=== PATIENT | female | born 1995 | race Caucasian/White ===

== ENCOUNTER 2016-10-19 12:41 | Inpatient (IN) | payer BC ==
[~2016-10-19] VITALS: Ht 157.5 cm; Wt 70.6 kg
[2016-10-19] MEDS ORDERED: TOPIRAMATE50 MG PO (14:07)
[2016-10-19] MEDS ORDERED: SUMATRIPTAN SU100 MG PO (14:08)
[2016-10-19] MEDS ORDERED: MONTELUKAST SOD10 MG PO (14:09)
[2016-10-19 14:32] LABS: EOSINOPHIL (%) 0.6 % (0-5); EOSINOPHIL COUNT 0.1 K/uL (0-0.3); HEMATOCRIT 45.5 % (36.0-46.0); IMMATURE GRANULOCYTE (%) 0.3 % (0.0-0.7); INSTRUMENT ABS NEUTROPHIL CT 4.5 K/uL; LYMPHOCYTE COUNT 2.7 K/uL (1.0-2.8); MCH 30.3 PG (29.0-34.0); MCHC 33.4 G/DL (30.0-36.0); MCV 90.8 FL (83-99); MEAN PLAT.VOLUME 10.5 uM^3 (9.5-12.4); MONOCYTE (%) 6.9 % (3-12); MONOCYTE COUNT 0.5 K/uL (0-0.8); NEUTROPHIL (%) 57.1 % (45-76); NEUTROPHIL COUNT 4.5 K/uL (1.8-6.4); PLATELET COUNT 259 K/uL (156-360); RBC DIS.WIDTH-CV 12.5 % (11.8-14.6); RBC DIS.WIDTH-SD 41.2 % (39-53); RED BLOOD COUNT 5.01 M/uL (3.80-5.20); WHITE BLOOD COUNT 7.8 K/uL (4.1-10.2)
[2016-10-19 14:37] LABS: INTER. NORMALIZED RATIO 1.1; PROTHROMBIN TIME 11.6 SEC (10.2-12.9)
[2016-10-19 14:43] LABS: CHLORIDE 109 mEq/L (99-109); POTASSIUM 3.6 mEq/L (3.7-5.4); SODIUM 139 mEq/L (136-147)
[2016-10-19 14:45] LABS: GLUCOSE 86 mg/dL (70-99)
[2016-10-19 14:47] LABS: ANION GAP 8 MEQ/L (2-14)
[2016-10-19 14:49] LABS: GFR ESTIMATE (CALCULATED) > 59 mL/min/
[2016-10-19 14:50] LABS: UREA NITROGEN (BUN) 12 mg/dL (9-23)
[2016-10-19 14:53] LABS: TROP-I INTERPRETATION NEGATIVE; TROPONIN-I < 0.01 ng/mL (0.0-0.30)
[2016-10-19 15:15] VITALS: BP 120/75
[2016-10-19 19:30] VITALS: BP 120/73
[2016-10-19 23:00] VITALS: BP 124/70
[2016-10-20 03:40] VITALS: BP 107/67
[2016-10-20 05:26] LABS: PROTHROMBIN TIME 11.1 SEC (10.2-12.9)
[2016-10-20 05:29] LABS: PTT 35.8 SEC (25-37)
[2016-10-20 05:32] LABS: HEMATOCRIT 40.9 % (36.0-46.0); MCH 32.8 PG (29.0-34.0); MCHC 35.5 G/DL (30.0-36.0); MCV 92.5 FL (83-99); MEAN PLAT.VOLUME 10.9 uM^3 (9.5-12.4); PLATELET COUNT 248 K/uL (156-360); RBC DIS.WIDTH-CV 12.9 % (11.8-14.6); RBC DIS.WIDTH-SD 43.7 % (39-53); RED BLOOD COUNT 4.42 M/uL (3.80-5.20); WHITE BLOOD COUNT 7.8 K/uL (4.1-10.2)
[2016-10-20 05:46] LABS: ANION GAP 9 MEQ/L (2-14); CHLORIDE 110 MEQ/L (99-109); GFR ESTIMATE (CALCULATED) > 59 mL/min/; GLUCOSE 81 mg/dL (70-99); POTASSIUM 3.7 MEQ/L (3.7-5.4); SAMPLE HEMOLYSIS CHECK 1; SAMPLE ICTERIC CHECK 0; SAMPLE LIPEMIA CHECK 3; SODIUM 140 MEQ/L (136-147); UREA NITROGEN (BUN) 12 mg/dL (9-23)
[2016-10-20 07:44] VITALS: BP 107/61
[2016-10-20 11:40] VITALS: BP 103/64
[2016-10-20 15:18] VITALS: BP 117/73
[2016-10-20] MEDS ORDERED: ELIQUIS5 MG PO (15:43)
[2016-10-25 12:14] LABS: THROMBIN TIME+ 18 sec
[2016-10-26 17:35] LABS: DRVVT Mixing Study Interp Not Indicated (()); PROTEIN C FUNCTIONAL ACTIVITY+ 147 % (70-180); PTT-LA 46 sec (<=40); PTT-LA Reflex Has been added (()); Protein S, Free 153 % normal (50-147); dRVVT Screen 30 sec (<=45)
[2016-10-27 09:08] LABS: ANTITHROMBIN III ACTIVITY+ 98 % activi (80-120)
== END 2016-10-20 18:36 | disposition home or self-care (01) | DRG 176 ==
LOC: EME 12:41 → EDOF 13:56 → 4EAST 13:56 → ENRESERV 13:58 → 4EAST 15:11
PROVIDERS: Emergency Medicine; Internal Medicine
DX: I26.99 Other pulmonary embolism without acute cor pulmonale (principal); G43.909 Migraine, unspecified, not intractable, without status migrainosus; Z86.711 Personal history of pulmonary embolism
CPT/HCPCS: 71010; 80048; 81240 90; 83090 90; 84484; 85025; 85027; 85240 90; 85300 90; 85303 90; 85305 90; 85306 90; 85307 90; 85610; 85613 90; 85670 90; 85730; 85730 90; 86146 90; 86147 90; 93005; 99281; 99285; J1650